=== PATIENT | female | born 1945 | race Caucasian/White ===

== ENCOUNTER 2017-07-21 12:18 | Day surgery (SDC) | payer MEDICARE ==
[~2017-07-21] VITALS: Ht 167.6 cm; Wt 81.5 kg
[~2017-07-21 12:18] MED LIST: ALLO300; BUDE6HFA; COLCRYS0.6 MG; DABI150C; DAILY MULTIPLE1 EACH PO; ESTR2 PO; ESTRTP; FURO40 PO; Hydrocodone-Ap1 EA23; LEVSOD125 PO; LOSA50 PO; MOMENI; NEBI10 PO; Prevacid15 M2 PO; TAMS.4ER; XARELTO20 MG PO
[2017-07-21] MEDS ORDERED: PROG100 PO (13:24)
[2017-07-21] MEDS ORDERED: ESTR2 PO (13:25)
[2018-06-13] MEDS ORDERED: OMEPRAZOLE MAGN20 MG PO (19:28)
[2018-06-13] MEDS ORDERED: ERGO400 PO (19:30)
[2018-06-13] MEDS ORDERED: TAMS.4ER PO (19:31)
[2018-06-13] MEDS ORDERED: ACET500 PO (19:32)
[2018-06-13] MEDS ORDERED: NATURE'S TEARS15 M1 BOTHEYES (21:33)
[2018-06-13] MEDS ORDERED: VITAMIN B PO (21:36)
[2018-06-13] MEDS ORDERED: FISH OIL 1,0001 EAC1 PO (21:36)
[2018-06-13] MEDS ORDERED: VITAMIN E PO (21:37)
[2018-06-13] MEDS ORDERED: MELA3 PO (21:38)
== END 2017-07-21 16:38 | disposition home or self-care (01) ==
LOC: ORSCSDS 12:18
PROVIDERS: Podiatrist Foot & Ankle Surgery
PROC: 0QPP04Z Removal of Internal Fixation Device from Left Metatarsal, Open Approach (ICD-10-PCS; principal; 2017-07-21 14:00)
PROC: 0QSP04Z Reposition Left Metatarsal with Internal Fixation Device, Open Approach (ICD-10-PCS; principal; 2017-07-21 14:00)
DX: M20.12 Hallux valgus (acquired), left foot (principal); Z96.9 Presence of functional implant, unspecified; I10 Essential (primary) hypertension; I48.91 Unspecified atrial fibrillation; Z87.891 Personal history of nicotine dependence; N18.9 Chronic kidney disease, unspecified; E03.9 Hypothyroidism, unspecified; Z79.899 Other long term (current) drug therapy
CPT/HCPCS: 82947; C1713; C1769; J0171; J0690; J2250; J2405; J3010; J7120

== ENCOUNTER → 2017-12-25 | Outpatient (CLI) | payer MEDICARE ==
[~2017-12-25] MED LIST changes: +DAILY MULTIPLE1 EACH; -DAILY MULTIPLE1 EACH PO; +ESTR2; +FURO40; -FURO40 PO; +LEVSOD125; -LEVSOD125 PO; +LOSA50; -LOSA50 PO; +NEBI10; -NEBI10 PO; +PROG100 PO; +Prevacid15 M2; -Prevacid15 M2 PO; +XARELTO20 MG; -XARELTO20 MG PO
[2017-12-25 08:45] LABS: Protein, Urine Quantitative 9.6 mg/dL (0.0-11.9)
[2017-12-25 08:48] LABS: Microalbumin, Urine Quant. 13.2 mg/L (0.000-20.000)
== END | disposition home or self-care (01) ==
LOC: LAB SHORT 07:17 → LAB EV 07:17
PROVIDERS: Internal Medicine Nephrology
DX: N18.3 Chronic kidney disease, stage 3 (moderate) (principal); D63.1 Anemia in chronic kidney disease; N25.81 Secondary hyperparathyroidism of renal origin; E55.9 Vitamin D deficiency, unspecified; E78.00 Pure hypercholesterolemia, unspecified; D51.8 Other vitamin B12 deficiency anemias; D52.8 Other folate deficiency anemias; D50.9 Iron deficiency anemia, unspecified; R76.9 Abnormal immunological finding in serum, unspecified; R94.5 Abnormal results of liver function studies; R94.6 Abnormal results of thyroid function studies
CPT/HCPCS: 81050; 82043; 84156

== ENCOUNTER 2020-11-24 18:55 | Inpatient (IN) | payer MEDICARE ==
[~2020-11-24] VITALS: Ht 167.6 cm; Wt 79.4 kg
[~2020-11-24 18:55] MED LIST changes: +ACET500 PO; -DAILY MULTIPLE1 EACH; +DAILY MULTIPLE1 EACH PO; +ERGO400 PO; -ESTR2; +FISH OIL 1,0001 EAC1 PO; -FURO40; +FURO40 PO; -LEVSOD125; +LEVSOD125 PO; -LOSA50; +LOSA50 PO; +MELA3 PO; +NATURE'S TEARS15 M1 BOTHEYES; -NEBI10; +NEBI10 PO; +OMEPRAZOLE MAGN20 MG PO; -Prevacid15 M2; +Prevacid15 M2 PO; +TAMS.4ER PO; +VITAMIN B PO; +VITAMIN E PO; -XARELTO20 MG; +XARELTO20 MG PO
[2020-11-24 19:48] LABS: BASOPHILS ABSOLUTE AUTO 0.04 K/mm3 (0.00-0.23); BASOPHILS PERCENT AUTO 0 % (0-2); EOSINOPHILS ABSOLUTE AUTO 0.17 K/mm3 (0.00-0.68); EOSINOPHILS PERCENT AUTO 2 % (0-6); Hematocrit 39.9 % (33.0-51.0); Hemoglobin 13.5 g/dL (11.5-16.0); IMMATURE GRAN ABSOLUTE AUTO 0.05 K/mm3 (0.00-0.10); IMMATURE GRAN PERCENT AUTO 1 % (0-1); LYMPHOCYTES ABSOLUTE AUTO 1.61 K/mm3 (0.84-5.20); LYMPHOCYTES PERCENT AUTO 17 % (21-46); MONOCYTES ABSOLUTE AUTO 1.27 K/mm3 (0.16-1.47); MONOCYTES PERCENT AUTO 13 % (4-13); Mean Corpuscular HGB 27.8 pg (26.0-34.0); Mean Corpuscular HGB Conc 33.8 g/dL (31.5-36.5); Mean Corpuscular Volume 82 fL (80-100); Mean Platelet Volume 8.6 fL (9.1-12.4); NEUTROPHILS ABSOLUTE AUTO 6.59 K/mm3 (1.96-9.15); NEUTROPHILS PERCENT AUTO 68 % (41-73); Platelet Count 162 K/mm3 (150-400); RDW Coefficient Variation 15.7 % (11.7-14.2); RDW Standard Deviation 44.4 fL (35.1-46.3); Red Blood Cell Count 4.86 M/mm3 (3.80-5.20); White Blood Cell Count 9.73 K/mm3 (4.00-11.30)
[2020-11-24 20:18] LABS: C-REACTIVE PROTEIN, EXT RANGE 13.1 mg/dL (0.000-0.300)
[2020-11-24 20:20] LABS: Albumin, Blood 3.5 g/dL (3.4-5.0); Albumin/Globulin Ratio 0.8 (0.8-1.8); Bilirubin, Total 0.9 mg/dL (0.1-1.0); Bun/Creatinine Ratio 12.2 (12.0-20.0); Calcium, Blood 9.2 mg/dL (8.5-10.1); Creatinine, Blood 1.15 mg/dL (0.40-1.00); Globulin, Blood 4.4 g/dL (2.2-4.0); Potassium, Blood 3.6 mmol/L (3.5-5.5); Total Protein, Blood 7.9 g/dL (6.4-8.2)
[2020-11-24] MEDS ORDERED: POTCHL20ER PO (22:43)
[2020-11-24 23:28] LABS: Source, Urine Clean Catch
[2020-11-24 23:30] LABS: Bilirubin, Urine Neg (Neg); Blood, Urine 4+ (Neg); Glucose Qualitative, Urine Neg (Neg); Ketones, Urine Neg (Neg); Leukocyte Esterase, Urine 3+ (Neg); Nitrite, Urine Neg (Neg); Protein, Urine 3+ (Neg); Urobilinogen, Urine NORM (Normal)
[2020-11-24 23:32] LABS: Appearance, Urine Cloudy (Clear); Color, Urine Yellow (P-Yellow)
[2020-11-24 23:37] LABS: Bacteria Many /hpf; Squamous Epithelial Cells Few /hpf (Few); White Blood Cells, Urine TNTC /hpf (0-5)
[2020-11-25] MEDS ORDERED: COLCRYS0.6 M1 PO (07:40)
--- NOTE | 2020-11-25 07:45 | NUR ---
SHIFT SUMMARY PT CAME IN FROM ED AT 0300 THIS MORNING. ALERT AND ORIENTED 3-4 WITH DAUGHTER JODY AT BEDSIDE. PT IS ADMITTED FOR L WRIST CELLULITIS WITH REDNESS, WARM TO TOUCH AND SWOLLEN. PT CAME IN WITH VANCOMYCIN INFUSING, STARTED TO FEEL WARM AND REDNESS ON FACE APPEARED. DAGOBERTO MCCONNELL JOSEPH DR. CARMICHAEL FOR BENADRYL. ADMINSTERED BENADRYL VIA IV. 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 PT HAS IV ON R HAND, SALINE LOCKED. IV ABX ADMINISTERED. PT REPORTS NO APPETITE IN THE PAST 2 DAYS. DENIES NAUSEA AND VOMITING. TOLERATING PO. HX AFIB. PT ON TELE, AFIB AT 96 PER [employer] TECH. PT DENIES NUMBNESS AND TINGLING SENSATION BUT HAD A HARD TIME MOVING LEFT SIDE FINGERS. PT SLEPT GOOD AFTER THE INITIAL ASSESSMENT. PT REPORTS PAIN, MEDICATED WITH TYLENOL. CALL LIGHT WITHIN REACH. WILL PROVIDE REPORT TO RN NURSE.
--- NOTE | 2020-11-25 19:34 | NUR ---
SHIFT SUMMARY PT A&OX4, VSS, L WRIST CELLULITIS, RED/WARM/EDEMA IMPROVED, WIGGLES FINGERS, ABLE TO MAKE A FIST NOW, DENIES N&T IN ALL EXT'S. DENIES NEED FOR PAIN MEDICATIONS. ALLEGRA PO. AMBULATING IND IN ROOM, TO BRP. VOIDING WELL. REPORT PROVIDED TO CAT RN.
[2020-11-26 04:11] LABS: BASOPHILS ABSOLUTE AUTO 0.05 K/mm3 (0.00-0.23); BASOPHILS PERCENT AUTO 1 % (0-2); EOSINOPHILS ABSOLUTE AUTO 0.25 K/mm3 (0.00-0.68); EOSINOPHILS PERCENT AUTO 4 % (0-6); Hematocrit 35.8 % (33.0-51.0); Hemoglobin 12.1 g/dL (11.5-16.0); IMMATURE GRAN ABSOLUTE AUTO 0.04 K/mm3 (0.00-0.10); IMMATURE GRAN PERCENT AUTO 1 % (0-1); LYMPHOCYTES PERCENT AUTO 21 % (21-46); MONOCYTES ABSOLUTE AUTO 0.73 K/mm3 (0.16-1.47); MONOCYTES PERCENT AUTO 11 % (4-13); Mean Corpuscular HGB 27.9 pg (26.0-34.0); Mean Corpuscular HGB Conc 33.8 g/dL (31.5-36.5); Mean Corpuscular Volume 83 fL (80-100); Mean Platelet Volume 9.1 fL (9.1-12.4); NEUTROPHILS ABSOLUTE AUTO 4.36 K/mm3 (1.96-9.15); NEUTROPHILS PERCENT AUTO 64 % (41-73); Platelet Count 145 K/mm3 (150-400); RDW Coefficient Variation 15.4 % (11.7-14.2); RDW Standard Deviation 44.3 fL (35.1-46.3); Red Blood Cell Count 4.34 M/mm3 (3.80-5.20); White Blood Cell Count 6.83 K/mm3 (4.00-11.30)
--- NOTE | 2020-11-26 04:17 | NUR ---
SHIFT SUMMARY PT AOX4. ADMITTED FOR CELLULITS ON LEFT WRIST. L WRIST REDNESS AND SWELLING IS IMPROVING. PT REPORTS MIN PAIN. PAIN MANAGED WITH TYLENOL. ABX ADMINISTERED X3. VOIDING ADEQUATELY DENIES ANY ISSUES BUT HAS BEEN HAVING DARKER YELLOW URINE. ENC PATIENT TO DRINK MORE FLUIDS. PT TOLERATION PO INTAKE. DENIES NAUSEA AND VOMITING. INDEPENDET IN ROOM. CALL LIGHT WITHIN REACH. WILL PROVIDE REPORT TO ONCOMING NURSE.
[2020-11-26 04:26] LABS: Albumin, Blood 2.8 g/dL (3.4-5.0); Anion Gap 7 mmol/L (6-16); Blood Urea Nitrogen 22 mg/dL (8-24); Bun/Creatinine Ratio 18.2 (12.0-20.0); CO2, Blood 28 mmol/L (21-32); Calcium, Blood 8.8 mg/dL (8.5-10.1); Chloride, Blood 106 mmol/L (98-108); Creatinine, Blood 1.21 mg/dL (0.40-1.00); Glomerular Filtration Rate 46 (60-); Glucose, Blood 129 mg/dL (70-99); Potassium, Blood 3.3 mmol/L (3.5-5.5); Sodium, Blood 141 mmol/L (136-145)
[2020-11-26] MEDS ORDERED: VISBIOME 112.51 EACH PO (12:50)
[2020-11-26] MEDS ORDERED: CEPH500 PO (12:52)
--- NOTE | 2020-11-26 14:40 | NUR ---
DISCHARGE SUMMARY PT ALERT AND ORIENTED THROUGHOUT MORNING SHIFT. TOLERATIG REGULAR DIET. INDEPENDENT IN THE ROOM. VOIDING WELL. SWELLING AND REDNESS TO LEFT HAND AND WRIST GREATLY DIMINISHED. DENIES PAIN. DISCHARGE ORDERS OBTAINED. IV DC'D WNL. PT TOLERATED WELL. TELE DC'D. DISCHARGE EDUCATION GIVEN ON FOLLOW UP PRECAUTIONS, FOLLOW UP APPOINTMENTS, AND DISCHARGE MEDS. PT LEFT UNIT VIA WHEELCHAIR FOR HOME AT 1250.
== END 2020-11-26 13:06 | disposition home or self-care (01) | DRG 872 ==
LOC: ER 18:55 → SURS 11-25 01:04 → ERHOLD 11-25 01:04 → SURS 11-25 03:00
PROVIDERS: Physician Assistant; ADMIT Family Medicine
DX: A41.9 Sepsis, unspecified organism (principal); I48.20 Chronic atrial fibrillation, unspecified; L03.114 Cellulitis of left upper limb; M11.232 Other chondrocalcinosis, left wrist; K21.9 Gastro-esophageal reflux disease without esophagitis; N18.30 Chronic kidney disease, stage 3 unspecified; M17.0 Bilateral primary osteoarthritis of knee; E03.9 Hypothyroidism, unspecified; Z87.11 Personal history of peptic ulcer disease; Z90.710 Acquired absence of both cervix and uterus; Z90.89 Acquired absence of other organs; Z98.890 Other specified postprocedural states; Z88.8 Allergy status to other drugs, medicaments and biological substances; Z79.01 Long term (current) use of anticoagulants; Z79.899 Other long term (current) drug therapy
CPT/HCPCS: 36415; 73110; 73200; 80053; 80069; 81001; 83605; 84550; 85025; 85651; 86140; 87086; 96365; 96367; 96374; 99285-25; A9270; J0690; J0696; J1170; J1200; J1885; J2405; J3370; J7040

== ENCOUNTER 2020-12-07 09:51 | Emergency (ER) | payer MEDICARE ==
[~2020-12-07] VITALS: Ht 167.6 cm; Wt 77.1 kg
[~2020-12-07 09:51] MED LIST changes: +CEPH500 PO; +COLCRYS0.6 M1 PO; +POTCHL20ER PO; +VISBIOME 112.51 EACH PO
[2020-12-07] MEDS ORDERED: CEPH500 PO (10:38)
== END 2020-12-07 11:10 | disposition home or self-care (01) ==
LOC: ER 09:51
DX: L03.114 Cellulitis of left upper limb (principal); I48.91 Unspecified atrial fibrillation; Z88.8 Allergy status to other drugs, medicaments and biological substances; Z88.1 Allergy status to other antibiotic agents; Z79.01 Long term (current) use of anticoagulants; Z87.891 Personal history of nicotine dependence
CPT/HCPCS: 99282

== ENCOUNTER 2021-05-03 08:28 | Day surgery (SDC) | payer MEDICARE ==
[~2021-05-03] VITALS: Ht 167.6 cm; Wt 28.5 kg
[~2021-05-03 08:28] MED LIST changes: -MELA3 PO; +MELATONIN5 M1 PO
[2021-05-03] MEDS ORDERED: FUROSEMIDE40 MG PO ×2 (09:32)
--- NOTE | 2021-05-03 11:58 | NUR ---
05/03/21 1158 Donnell Blanoc AT BEDSIDE ORDERING FOR CARDIOLOGY TO BE CALLED AND HAVE CONSULT OR APPOINTMENT TO BE MADE VIRGIL OR WITHIN A WEEK DUE TO TACHYCARDIA. PATIENT PUT ONTO 3 LEAD SHOWING SINUS TACHYCARDIA RANGING FROM 135-159 BPM WITH ANESTHESIA INFORMED AND OBSERVING VS AND LEAD RYTHM. PAR STAFF INFORMED TO KEEP PATIENT IN PAR FOR OBERSERVATION UNTIL HEART RATE STAYS CONSISTENTLY UNDER 100BPM.
--- NOTE | 2021-05-03 12:18 | NUR ---
05/03/21 1218 Donnell Blanco 10MG GIVEN BY MOUTH PER FOR TACHYCARDIA. SAMPLE OF MEDICATION RECEIVED BY [facility]. THIS IS PATIENTS HOME REGIMEN DOSE PER PT.
[2021-05-03] MEDS ORDERED: Bystolic10 MG PO ×2 (14:17)
[2021-05-03] MEDS ORDERED: SYNTHROID125 MC1 PO ×2 (14:19)
[2021-05-03] MEDS ORDERED: OMEP20ER PO ×2 (14:20)
== END 2021-05-03 13:50 | disposition home or self-care (01) ==
LOC: ORSCSDS 08:28
PROVIDERS: Orthopaedic Surgery
PROC: 0LX80ZZ Transfer Left Hand Tendon, Open Approach (ICD-10-PCS; principal; 2021-05-03 10:00)
PROC: 0RQT0ZZ Repair Left Carpometacarpal Joint, Open Approach (ICD-10-PCS; principal; 2021-05-03 10:00)
DX: M18.12 Unilateral primary osteoarthritis of first carpometacarpal joint, left hand (principal); I10 Essential (primary) hypertension; N18.30 Chronic kidney disease, stage 3 unspecified; I48.91 Unspecified atrial fibrillation; K21.9 Gastro-esophageal reflux disease without esophagitis; Z79.01 Long term (current) use of anticoagulants; Z87.891 Personal history of nicotine dependence; E03.9 Hypothyroidism, unspecified; Z79.899 Other long term (current) drug therapy
CPT/HCPCS: 71045; 82947; J0690; J1100; J2250; J2370; J2405; J2704; J3010; J7120

== ENCOUNTER 2021-05-03 13:30 | Observation (INO) | payer MEDICARE ==
[~2021-05-03] VITALS: Ht 167.6 cm; Wt 83.4 kg
[~2021-05-03 13:30] MED LIST changes: +FUROSEMIDE40 MG PO
[2021-05-03] MEDS ORDERED: Bystolic10 MG PO ×2 (14:17)
[2021-05-03] MEDS ORDERED: SYNTHROID125 MC1 PO ×2 (14:19)
[2021-05-03] MEDS ORDERED: OMEP20ER PO ×2 (14:20)
[2021-05-03 15:20] LABS: BASOPHILS ABSOLUTE AUTO 0.05 K/mm3 (0.00-0.23); BASOPHILS PERCENT AUTO 1 % (0-2); EOSINOPHILS ABSOLUTE AUTO 0.08 K/mm3 (0.00-0.68); EOSINOPHILS PERCENT AUTO 1 % (0-6); Hemoglobin 13.1 g/dL (11.5-16.0); IMMATURE GRAN ABSOLUTE AUTO 0.07 K/mm3 (0.00-0.10); IMMATURE GRAN PERCENT AUTO 1 % (0-1); LYMPHOCYTES ABSOLUTE AUTO 1.28 K/mm3 (0.84-5.20); LYMPHOCYTES PERCENT AUTO 15 % (21-46); MONOCYTES ABSOLUTE AUTO 0.31 K/mm3 (0.16-1.47); MONOCYTES PERCENT AUTO 4 % (4-13); Mean Corpuscular HGB Conc 33.6 g/dL (31.5-36.5); Mean Corpuscular Volume 86 fL (80-100); Mean Platelet Volume 9.2 fL (9.1-12.4); NEUTROPHILS ABSOLUTE AUTO 6.67 K/mm3 (1.96-9.15); NEUTROPHILS PERCENT AUTO 79 % (41-73); Platelet Count 160 K/mm3 (150-400); RDW Coefficient Variation 13.5 % (11.7-14.2); RDW Standard Deviation 42.6 fL (35.1-46.3); Red Blood Cell Count 4.52 M/mm3 (3.80-5.20); White Blood Cell Count 8.46 K/mm3 (4.00-11.30)
[2021-05-03 15:54] LABS: Alanine Aminotransfer (ALT/SGP 41 U/L (12-78); Albumin, Blood 3.3 g/dL (3.4-5.0); Albumin/Globulin Ratio 0.9 (0.8-1.8); Alk Phos 78 U/L (50-136); Anion Gap 8 mmol/L (6-16); Aspartate Aminotrans (AST/SGOT 32 U/L (12-37); Bilirubin, Total 0.3 mg/dL (0.1-1.0); Blood Urea Nitrogen 20 mg/dL (8-24); Bun/Creatinine Ratio 19.2 (12.0-20.0); CO2, Blood 28 mmol/L (21-32); Calcium, Blood 8.6 mg/dL (8.5-10.1); Chloride, Blood 104 mmol/L (98-108); Creatinine, Blood 1.04 mg/dL (0.40-1.00); Globulin, Blood 3.8 g/dL (2.2-4.0); Glomerular Filtration Rate 51 (60-); Glucose, Blood 161 mg/dL (70-99); Magnesium, Blood 1.7 mg/dL (1.6-2.4); Potassium, Blood 3.4 mmol/L (3.5-5.5); Sodium, Blood 140 mmol/L (136-145); Total Protein, Blood 7.1 g/dL (6.4-8.2)
--- NOTE | 2021-05-03 15:56 | NUR ---
CARE ASSUMPTION/ARRIVAL TO PCU PATIENT ARRIVED FROM SURGERY CENTER VIA GURNEY AND TRANSFERED TO PCU BED VIA SLIDER SHEET. ARRIVED ON 10L NRB, AND WE SWITCHED TO 2L NC AND PATIENT O2 SATS >90%. TELE AFIB MAX 130. VSS. SWITCHED TO RA AND SPO2 >90%. LUNG SOUNDS CLEAR. NO CHEST PAIN OR SOB. THUMB PAIN RATED AT 3. ICE PROVIDED AND ELEVATED. CALL LIGHT WITHIN REACH AND BED IN LOWEST POSITION. WILL CONTINUE TO MONITOR AND PROVIDE CARE.
[2021-05-03 16:14] LABS: Troponin I <0.015 ng/mL (0.000-0.040)
--- NOTE | 2021-05-03 17:52 | NUR ---
SHIFT SUMMARY PATIENT A.OX4. VSS. AFIB 80-100. SPO2 >90% ON 2L NC. PATIENT STARTED TO DESAT WHEN SLEEPING SO PUT O2 BACK ON. CARDIZEM INFUSING AT A RATE OF 5. NO ACUTE CHANGES. WILL CONTINUE TO MONITOR AND PROVIDE CARE UNTIL HAND OFF WITH NEXT SHIFT.
[2021-05-04 03:38] LABS: BASOPHILS ABSOLUTE AUTO 0.03 K/mm3 (0.00-0.23); BASOPHILS PERCENT AUTO 0 % (0-2); EOSINOPHILS PERCENT AUTO 0 % (0-6); Hematocrit 34.8 % (33.0-51.0); Hemoglobin 11.8 g/dL (11.5-16.0); IMMATURE GRAN ABSOLUTE AUTO 0.17 K/mm3 (0.00-0.10); IMMATURE GRAN PERCENT AUTO 1 % (0-1); LYMPHOCYTES ABSOLUTE AUTO 1.26 K/mm3 (0.84-5.20); LYMPHOCYTES PERCENT AUTO 9 % (21-46); MONOCYTES ABSOLUTE AUTO 1.02 K/mm3 (0.16-1.47); MONOCYTES PERCENT AUTO 8 % (4-13); Mean Corpuscular HGB 29.1 pg (26.0-34.0); Mean Corpuscular HGB Conc 33.9 g/dL (31.5-36.5); Mean Corpuscular Volume 86 fL (80-100); Mean Platelet Volume 9.4 fL (9.1-12.4); NEUTROPHILS ABSOLUTE AUTO 11.01 K/mm3 (1.96-9.15); NEUTROPHILS PERCENT AUTO 82 % (41-73); Platelet Count 152 K/mm3 (150-400); RDW Coefficient Variation 13.8 % (11.7-14.2); RDW Standard Deviation 42.7 fL (35.1-46.3); Red Blood Cell Count 4.05 M/mm3 (3.80-5.20); White Blood Cell Count 13.49 K/mm3 (4.00-11.30)
[2021-05-04 03:59] LABS: Alanine Aminotransfer (ALT/SGP 35 U/L (12-78); Albumin, Blood 2.9 g/dL (3.4-5.0); Albumin/Globulin Ratio 0.8 (0.8-1.8); Alk Phos 65 U/L (50-136); Anion Gap 8 mmol/L (6-16); Aspartate Aminotrans (AST/SGOT 24 U/L (12-37); Bilirubin, Total 0.4 mg/dL (0.1-1.0); Blood Urea Nitrogen 29 mg/dL (8-24); Bun/Creatinine Ratio 24.6 (12.0-20.0); CO2, Blood 28 mmol/L (21-32); Calcium, Blood 8.5 mg/dL (8.5-10.1); Chloride, Blood 103 mmol/L (98-108); Creatinine, Blood 1.18 mg/dL (0.40-1.00); Globulin, Blood 3.6 g/dL (2.2-4.0); Glomerular Filtration Rate 44 (60-); Glucose, Blood 184 mg/dL (70-99); Potassium, Blood 3.6 mmol/L (3.5-5.5); Sodium, Blood 139 mmol/L (136-145); Total Protein, Blood 6.5 g/dL (6.4-8.2); Troponin I <0.015 ng/mL (0.000-0.040)
--- NOTE | 2021-05-04 08:25 | NUR ---
SHIFT SUMMARY PT A/OX4, APPROPRIATE WITH STAFF. ON TELE AFIB 90'S-100'S. ON 1-2L NC TO MAINTAIN O2 ABOVE 90% WHEN SLEEPING DOES DESAT. HAS HER LEFT ARM ON A SLING, WITH ROB WRAP WITH NO DRAINAGE NOTED. ELEVATED LEFT ARM ON PILLOWS AND PUT ICE BAG AROUND ARM. BUE AND BLE SKIN WARM T/O TO TOUCH. ABLE TO MOVE FINGERS ON BOTH HANDS. PT DID HAVE A LOW GRADE FEVER AND SOMCE DISCOMFORT AND MEDICATED PER EMAR/ORDERS. VSS. PT WAS HAVING SOME ACID RELUX; HOSPITALIST NOTIFIED AND ORDERS WERE GIVEN; PT MORE COMFORTABLE. PT CONT. TO BEDSIDE COMMODE WITH ONE PERSON ASSIST. BED IN LOWEST POSITION, CALL LIGHT W/I REACH, AND BED ALARM ON. GAVE REPORT TO KRISTAL GUTIERREZ RN.
--- NOTE | 2021-05-04 09:15 | NUR ---
CARE ASSUMPTION PATIENT A/OX4. VSS. SPO2 >90% ON RA. TELE AFIB 70-90S. NO CHEST PAIN, PAIN, OR SOB. MD IN TO SEE PATIENT AND PATIENT WILL DISCHARGE TODAY. CALL LIGHT WITHIN REACH. WILL CONTINUE TO MONITOR AND PROVIDE CARE.
--- NOTE | 2021-05-04 10:46 | NUR ---
PT DISCHARGED TO HOME WITH DISCHARGE ORDERS PT DISCLOSED POST OP INSTRUCTIONS FROM YESTERDAY'S DC PAPPER FROM DAY SURGERY. PT VERBALIZED UNDERSTANDING. PT TO CONTINUE SAME HOME MEDS REGIMEN. PT SENT HOME WITH PAIN MEDS HARD SCRIPT. DRESSING ON LEFT ARM INTACT WITH SLING ON. NO OTHER ISSUES REPORTED PRIOR TO DISCHARGE. PT ACCOMPANIED BY NATIONAL GUARD AT THE ER ENTRANCE FOR TRANSPORT, ALL BELONGINGS SENT WITH THE PT.
== END 2021-05-04 10:48 | disposition home or self-care (01) ==
LOC: PCU 13:30
PROVIDERS: ADMIT Nurse Practitioner Acute Care
DX: I97.191 Other postprocedural cardiac functional disturbances following other surgery (principal); I48.20 Chronic atrial fibrillation, unspecified; I12.9 Hypertensive chronic kidney disease with stage 1 through stage 4 chronic kidney disease, or unspecified chronic kidney disease; N18.30 Chronic kidney disease, stage 3 unspecified; E66.01 Morbid (severe) obesity due to excess calories; K21.9 Gastro-esophageal reflux disease without esophagitis; E78.1 Pure hyperglyceridemia; E89.0 Postprocedural hypothyroidism; Z88.8 Allergy status to other drugs, medicaments and biological substances; Z88.1 Allergy status to other antibiotic agents; Z79.01 Long term (current) use of anticoagulants; Z68.29 Body mass index [BMI] 29.0-29.9, adult; Y83.8 Other surgical procedures as the cause of abnormal reaction of the patient, or of later complication, without mention of misadventure at the time of the procedure
CPT/HCPCS: 36415; 80053; 83735; 83880; 84484; 85025; 93005; 93010; 96374; 96375; A9270; G0378; J1940

== ENCOUNTER 2021-05-20 10:03 | Day surgery (SDC) | payer MEDICARE ==
[~2021-05-20] VITALS: Ht 167.6 cm; Wt 79.4 kg
[~2021-05-20 10:03] MED LIST changes: +Bystolic10 MG PO; +OMEP20ER PO; +SYNTHROID125 MC1 PO
--- NOTE | 2021-05-20 14:45 | NUR ---
05/20/21 1445 Susan Jin (Marielena DELAYED ENTRY ONCE IN RECOVERY, PT DESATURATED TO 88% ON ROOM AIR. WHEN INSTRUCTED TO DEEP BREATHE, 02 INCREASED TO 90-94%. UNLESS PT WAS CONSCIOUSLY DEEP BREATHING, OXYGEN WOULD DROP TO 88%. PT CONTINUES TO DENY ANY DISCOMFORT, DIFFICULTY BREATHING OR NEED TO CLEAR LUNGS. LUNGS CLEAR TO AUSCULTATION, PT DOES NOT APPEAR IN DISTRESS, NO LABORED BREATHING. DR. MANZO NOTIFIED OF DECREASED O2 SAT. 1255: DR. MANZO CALLED PT'S PCP 1300: DR. MANZO CALLED ED REGARDING POSSIBLE TX FOR CHEST XRAY PT ADAMANTLY DOES NOT WANT TO REPORT TO ED; STS SHE "LIVES LIKE THIS" AND "FEELS FINE". DR. MANZO CLEARED PT FOR PO INTAKE. PT TOLERATING JUICE WITHOUT ISSUES. PT O2 GRADUALLY INCREASING WITHOUT FOCUSED DEEP BREATHING, SATURATION NOW RANGING 93-96% ON ROOM AIR. PT & DR. MANZO IN AGREEMENT PT IS OKAY TO DISCHARGE HOME. 1325: DR. MANZO CLEARED PT TO DISCHARGE HOME ON ROOM AIR.
== END 2021-05-20 13:45 | disposition home or self-care (01) ==
LOC: ORSCSDS 10:03
DX: D50.0 Iron deficiency anemia secondary to blood loss (chronic) (principal); R19.5 Other fecal abnormalities; Z86.010 Personal history of colon polyps; K31.7 Polyp of stomach and duodenum; K44.9 Diaphragmatic hernia without obstruction or gangrene; K57.30 Diverticulosis of large intestine without perforation or abscess without bleeding; K64.8 Other hemorrhoids; I48.91 Unspecified atrial fibrillation; Z79.01 Long term (current) use of anticoagulants; Z87.891 Personal history of nicotine dependence; E03.9 Hypothyroidism, unspecified; K76.0 Fatty (change of) liver, not elsewhere classified; Z79.899 Other long term (current) drug therapy
CPT/HCPCS: 82947; 88305; 88341; 88342; J2405; J2704; J7120

== ENCOUNTER → 2022-06-16 | Outpatient (CLI) | payer MEDICARE | LOC: LAB 08:05 → LAB SHORT 08:05 | DX: L72.0 Epidermal cyst (principal); L57.8 Other skin changes due to chronic exposure to nonionizing radiation | CPT/HCPCS: 88304 ==

== ENCOUNTER 2023-02-01 11:44 | Inpatient (IN) | payer MEDICARE ==
[~2023-02-01] VITALS: Ht 167.6 cm; Wt 79.5 kg
[~2023-02-01 11:44] MED LIST changes: +ALLOPURINOL100 M1 PO; +AMOCLA875 PO; +HYDROCODONE-AC1 EA10 PO
[2023-02-01 12:21] LABS: BASOPHILS ABSOLUTE AUTO 0.04 K/mm3 (0.00-0.23); BASOPHILS PERCENT AUTO 0 % (0-2); EOSINOPHILS ABSOLUTE AUTO 0.01 K/mm3 (0.00-0.68); EOSINOPHILS PERCENT AUTO 0 % (0-6); Hematocrit 36.7 % (33.0-51.0); Hemoglobin 12.4 g/dL (11.5-16.0); IMMATURE GRAN PERCENT AUTO 1 % (0-1); LYMPHOCYTES PERCENT AUTO 3 % (21-46); MONOCYTES ABSOLUTE AUTO 0.87 K/mm3 (0.16-1.47); MONOCYTES PERCENT AUTO 7 % (4-13); Mean Corpuscular HGB 28.2 pg (26.0-34.0); Mean Corpuscular HGB Conc 33.8 g/dL (31.5-36.5); Mean Corpuscular Volume 83 fL (80-100); Mean Platelet Volume 9.8 fL (9.1-12.4); NEUTROPHILS ABSOLUTE AUTO 11.91 K/mm3 (1.96-9.15); NEUTROPHILS PERCENT AUTO 89 % (41-73); Platelet Count 133 K/mm3 (150-400); RDW Coefficient Variation 14.8 % (11.7-14.2); RDW Standard Deviation 44.8 fL (35.1-46.3); White Blood Cell Count 13.33 K/mm3 (4.00-11.30)
[2023-02-01 12:28] LABS: Source, Urine Straight Cath
[2023-02-01 12:34] LABS: Magnesium, Blood 1.4 mg/dL (1.6-2.4)
[2023-02-01 12:35] LABS: Albumin, Blood 3.4 g/dL (3.4-5.0); Albumin/Globulin Ratio 0.9 (0.8-1.8); Bilirubin, Total 4.1 mg/dL (0.1-1.0); Bun/Creatinine Ratio 20.3 (12.0-20.0); Calcium, Blood 9.1 mg/dL (8.5-10.1); Creatinine, Blood 0.98 mg/dL (0.40-1.00); Globulin, Blood 3.8 g/dL (2.2-4.0); Potassium, Blood 3.1 mmol/L (3.5-5.5); Total Protein, Blood 7.2 g/dL (6.4-8.2)
[2023-02-01 12:35] LABS: Appearance, Urine Clear (Clear); Bilirubin, Urine Neg (Neg); Blood, Urine 3+ (Neg); Color, Urine Yellow (P-Yellow); Glucose Qualitative, Urine Neg (Neg); Ketones, Urine Neg (Neg); Leukocyte Esterase, Urine Neg (Neg); Nitrite, Urine Neg (Neg); Protein, Urine 3+ (Neg); Specific Gravity, Urine 1.015 (1.003-1.022); Urobilinogen, Urine NORM (Normal)
[2023-02-01 12:53] LABS: Red Blood Cells, Urine 0-2 /hpf (0-2); White Blood Cells, Urine 0-2 /hpf (0-5)
[2023-02-01 12:54] LABS: Amorphous Light (0-Heavy); Bacteria Few /hpf; Mucus Mod (0-Heavy); Squamous Epithelial Cells Few /hpf (Few)
[2023-02-01 20:50] LABS: International Normalized Ratio 1.19; Prothrombin Time Results 12.4 Sec (9.7-11.5)
[2023-02-01 21:09] VITALS: BP 126/73
[2023-02-01 23:43] VITALS: BP 129/74
[2023-02-02] VITALS (7 sets, daily range): BP systolic 110–151; BP diastolic 76–88
[2023-02-02] MEDS ORDERED: NEBI10 PO (03:25)
[2023-02-02] MEDS ORDERED: MELATONIN5 M1 PO (03:26)
[2023-02-02 05:29] LABS: BASOPHILS ABSOLUTE AUTO 0.03 K/mm3 (0.00-0.23); BASOPHILS PERCENT AUTO 0 % (0-2); EOSINOPHILS ABSOLUTE AUTO 0.15 K/mm3 (0.00-0.68); EOSINOPHILS PERCENT AUTO 1 % (0-6); Hemoglobin 11.7 g/dL (11.5-16.0); IMMATURE GRAN ABSOLUTE AUTO 0.09 K/mm3 (0.00-0.10); IMMATURE GRAN PERCENT AUTO 1 % (0-1); LYMPHOCYTES ABSOLUTE AUTO 0.85 K/mm3 (0.84-5.20); LYMPHOCYTES PERCENT AUTO 8 % (21-46); MONOCYTES ABSOLUTE AUTO 1.08 K/mm3 (0.16-1.47); MONOCYTES PERCENT AUTO 10 % (4-13); Mean Corpuscular HGB Conc 32.5 g/dL (31.5-36.5); Mean Corpuscular Volume 86 fL (80-100); Mean Platelet Volume 10.8 fL (9.1-12.4); NEUTROPHILS ABSOLUTE AUTO 9.15 K/mm3 (1.96-9.15); NEUTROPHILS PERCENT AUTO 81 % (41-73); Platelet Count 106 K/mm3 (150-400); RDW Coefficient Variation 15.6 % (11.7-14.2); RDW Standard Deviation 48.7 fL (35.1-46.3); Red Blood Cell Count 4.18 M/mm3 (3.80-5.20); White Blood Cell Count 11.35 K/mm3 (4.00-11.30)
[2023-02-02 05:40] LABS: International Normalized Ratio 1.3; Prothrombin Time Results 13.4 Sec (9.7-11.5)
[2023-02-02 06:09] LABS: Magnesium, Blood 2.2 mg/dL (1.6-2.4)
[2023-02-02 06:10] LABS: Albumin, Blood 3.2 g/dL (3.4-5.0); Albumin/Globulin Ratio 0.9 (0.8-1.8); Bilirubin, Total 6.5 mg/dL (0.1-1.0); Bun/Creatinine Ratio 18.2 (12.0-20.0); Calcium, Blood 8.7 mg/dL (8.5-10.1); Creatinine, Blood 1.21 mg/dL (0.40-1.00); Globulin, Blood 3.7 g/dL (2.2-4.0); Potassium, Blood 3.9 mmol/L (3.5-5.5); Total Protein, Blood 6.9 g/dL (6.4-8.2)
--- NOTE | 2023-02-02 06:50 | NUR ---
SHIFT SUMMARY PATIENT ARRIVED TO PCU 12 VIA STRETCHER, SLIDE TRANSFER COMPLETED. PATIENT IS ALERT AND ORIENTED X 2-3, CONFUSED ON DATE AND CURRENT SITUATION, FORGETFUL AT TIMES. PATIENT IS PLEASANT AND COOPORATIVE WITH CARE. PATIENT'S ABDOMEN IS FIRM AND DISTENDED BUT PATIENT DENIES ANY PAIN OR TENDERNESS, BOWEL TONES ACTIVE. PATIENT MEDICATED PER EMAR FOR NAUSEA. PATIENT HAD SEVERAL SMALL, LOOSE BOWEL MOVEMENTS, SOME BRIGHT RED DROPS NOTED ON TOP. PATIENT DENIES CHEST PAIN OR SHORTNESS OF BREATH. ON ROOM AIR, VITAL SIGNS STABLE. PATIENT EDUCATED ON FIRE SAFETY AND IGNITION SOURCES IN THE HOSPITAL. WILL CONTINUE TO MONITOR. CALL LIGHT WITHIN REACH.
--- NOTE | 2023-02-02 07:40 | NUR ---
Bedside report received from JAYESH Jaime at approx 0700. Pt is awake, alert, and confused. Able to state her name and birthday, and where she is. Unable to articulate neither the present date, season, nor reason for admission; however, she clearly states that her lap heladio was November 25 of this year. She is cooperative and appears not to be anxious. States she has some nausea. NO vomiting. Assisted up to recliner chair with chair alarm in place. States she feels more comfortable in that position. NOted she was given zofran earlier this morning, around 4 am. Lactated Ringer infusion at 125 cc/hour noted ongoing. She has no c/o pain or other discomfort.
--- NOTE | 2023-02-02 08:01 | NUR ---
Pt mentioned that she was concerned about her alone. Phone call made to him to update him. Daughter Gemma just arrived.
--- NOTE | 2023-02-02 12:10 | NUR ---
PT stated she was extremely tired, and wanted to get back into bed. Slightly disoriented, but assisted easily back to bed.
--- NOTE | 2023-02-02 14:15 | NUR ---
Pt's heart rate has been trending up. She also has increased temperature, 100.1 orally. Blood pressure is stable, but lower than earlier. She is very tired, wants to nap, but moaning and grimacing while lying in bed. Has difficulty articulating where her pain is, but did state abdominal pain, headache. Given 25 fentanyl for abdominal pain as well as 650 mg Tylenol. Resting quietly in darkened room with daughter at bedside. IVF continue to infuse as before at 125 cc/hour. Atrial fibrillation by telemetry, 125-130 bpm at rest.
--- NOTE | 2023-02-02 15:19 | NUR ---
Call to Dr Steward to update her on pt condition. New orders received, others anticipated shortly.
--- NOTE | 2023-02-02 16:02 | NUR ---
Pt awakened, cheerful, and states that her headache is gone and her abdominal pain is only "slight". She is talkative with her two visitors at the bedside. Asked for some 7-UP. Heart rate is 101-113 bpm, atrial fibrillation, at this time.
[2023-02-02 22:19] LABS: Adenovirus F 40/41 Not Detected (NOT DETECT); Astrovirus Not Detected (NOT DETECT); Campylobacter Sp Not Detected (NOT DETECT); Cryptosporidium Not Detected (NOT DETECT); Cyclospora Cayetanensis Not Detected (NOT DETECT); E. Coli O157 Not Detected (NOT DETECT); Entamoeba Histolytica Not Detected (NOT DETECT); Enteroaggregative E. coli-EAEC Not Detected (NOT DETECT); Enteropathogenic E. coli-EPEC Not Detected (NOT DETECT); Enterotoxigenic E. coli-ETEC Not Detected (NOT DETECT); Giardia Lamblia Not Detected (NOT DETECT); Norovirus GI/GII Not Detected (NOT DETECT); Plesiomonas Shigelloides Not Detected (NOT DETECT); Rotavirus A Not Detected (NOT DETECT); Salmonella Sp Not Detected (NOT DETECT); Sapovirus Not Detected (NOT DETECT); Shiga Toxin-prod E. coli-STEC Not Detected (NOT DETECT); Shigella/Enteroin E. coli-EIEC Not Detected (NOT DETECT); Vibrio Cholerae Not Detected (NOT DETECT); Vibrio Sp Not Detected (NOT DETECT); Yersinia Enterocolitica Not Detected (NOT DETECT)
[2023-02-03 00:02] VITALS: BP 149/87
[2023-02-03 03:31] LABS: BASOPHILS ABSOLUTE AUTO 0.03 K/mm3 (0.00-0.23); BASOPHILS PERCENT AUTO 0 % (0-2); EOSINOPHILS ABSOLUTE AUTO 0.16 K/mm3 (0.00-0.68); EOSINOPHILS PERCENT AUTO 2 % (0-6); Hemoglobin 10.8 g/dL (11.5-16.0); IMMATURE GRAN ABSOLUTE AUTO 0.07 K/mm3 (0.00-0.10); IMMATURE GRAN PERCENT AUTO 1 % (0-1); LYMPHOCYTES ABSOLUTE AUTO 1.12 K/mm3 (0.84-5.20); LYMPHOCYTES PERCENT AUTO 13 % (21-46); MONOCYTES ABSOLUTE AUTO 0.91 K/mm3 (0.16-1.47); MONOCYTES PERCENT AUTO 10 % (4-13); Mean Corpuscular HGB Conc 32.7 g/dL (31.5-36.5); Mean Corpuscular Volume 86 fL (80-100); Mean Platelet Volume 10.5 fL (9.1-12.4); NEUTROPHILS ABSOLUTE AUTO 6.59 K/mm3 (1.96-9.15); NEUTROPHILS PERCENT AUTO 74 % (41-73); Platelet Count 102 K/mm3 (150-400); RDW Standard Deviation 49.4 fL (35.1-46.3); Red Blood Cell Count 3.86 M/mm3 (3.80-5.20); White Blood Cell Count 8.88 K/mm3 (4.00-11.30)
[2023-02-03 03:55] LABS: Albumin, Blood 2.9 g/dL (3.4-5.0); Albumin/Globulin Ratio 0.8 (0.8-1.8); Bilirubin, Total 6.3 mg/dL (0.1-1.0); Bun/Creatinine Ratio 20.9 (12.0-20.0); Calcium, Blood 8.4 mg/dL (8.5-10.1); Creatinine, Blood 0.96 mg/dL (0.40-1.00); Globulin, Blood 3.7 g/dL (2.2-4.0); Potassium, Blood 3.7 mmol/L (3.5-5.5); Total Protein, Blood 6.6 g/dL (6.4-8.2)
[2023-02-03 05:07] VITALS: BP 149/105
--- NOTE | 2023-02-03 06:37 | NUR ---
SHIFT SUMMARY PATIENT ALERT AND OREINTED X 2-3. PATIENT REMAINS SLIGHTLY CONFUSED AND FORGETFUL, HAVING TO BE REORIENTED TO TASKS AT HAND AND EQUIPMENT IN THE ROOM. PATIENT MEDICATED PER EMAR FOR NAUSEA. PATIENT WAS AWAKE MUCH OF THE NIGHT STATING THAT SHE FELT SICK TO HER STOMACH, PATIENT DENIED HAVING ANY PAIN. PATIENT ON ROOM AIR. VITAL SIGNS STABLE. PATIENT EDUCATED ON FIRE SAFETY AND IGNITION RISK IN THE HOSPITAL. WILL CONTINUE TO MONITOR. CALL LIGHT WITHIN REACH.
--- NOTE | 2023-02-03 07:17 | NUR ---
Pt states she did not sleep very well at all last night. She appears tired, lying in bed on her left side. States no appetite, ongoing nausea. States very bad sore throat and dry mouth. Given a popscicle which she is eating now for relief.
[2023-02-03 07:29] VITALS: BP 156/91
[2023-02-03 08:13] LABS: COMPLEMENT C3, SERUM 118 mg/dL (82-167)
--- NOTE | 2023-02-03 08:28 | NUR ---
States that the popscicle really helped her sore throat. Drank 100cc apple juice, states that she is feeling okay. Daughter Gemma at the bedside.
--- NOTE | 2023-02-03 09:48 | NUR ---
ASSUMED CARE: ASSUMED CARE OF PT APPROX 0715. PT A&O X3-4, SITTING UP IN BED. HR 110'S, SBP 150'S. PT DENIES CP/PRESSURE. SPO2 95% ON RA, PT REPORTS FEELING SOB. HOB ELEVATED, PT REPORTS RELIEF. PT DENIES NAUSEA AT THIS TIME. DAUGHTER JODY AT BEDSIDE THIS AM. CALL LIGHT WITHIN REACH. NO FURTHER NEEDS AT THIS TIME.
[2023-02-03 11:13] LABS: HBSAG SCREEN Negative (Negative); HCV AB Non Reactive (Non Reactive); HEP A AB, IGM Negative (Negative); HEP B CORE AB, IGM Negative (Negative)
[2023-02-03 11:48] VITALS: BP 121/79
--- NOTE | 2023-02-03 12:09 | NUR ---
SAFETY NOTE: PT EDUCATED ON FIRE SAFETY AND IGNITION SOURCES AT THE HOSPITAL. PT VOICED UNDERSTANDING OF EDUCATION.
--- NOTE | 2023-02-03 15:25 | NUR ---
Call to Dr. Steward regarding pt's c/o wheezing and increased work of breathing. NO distress, but noted transient wheezing and crackles. No peripheral edema noted on the legs; however, pt states that her rings on her fingers are tight. IVF were paused and called the doctor. Pt was also given an incentive spirometer, and demonstrated the use of it. New order to dc the continueous fluids. Pt is eating and drinking.
[2023-02-03 15:52] VITALS: BP 148/74
--- NOTE | 2023-02-03 18:10 | NUR ---
SHIFT SUMMARY: PT MOSTLY A&OX4 THROUGHOUT SHIFT. ABLE TO CALL APPROPRIATELY AND MAKE NEEDS KNOWN TO STAFF. HR 90'S-110'S, BP STABLE. PT DENIES CP/PRESSURE. SPO2 MOSTLY 92-95%. SEE PREVIOUS NOTE REGARDING RESPIRATORY CHANGES THIS SHIFT. ZOSYN INFUSING IN LAC IV PER EMAR. ABLE TO AMBULATE WITH STAFF ASSISTANCE TO RESTROOM. PT ABLE TO EAT APPLESAUCE AND BAKED POTATO THIS SHIFT. REPORTS SLIGHT INCREASE IN APPETITE, DENIES NAUSEA. PT REPORTS HEADACHE THIS PM, MEDICATED WITH TYLENOL PER EMAR. PT RESTING IN BED. CALL LIGHT WITHIN REACH, NO FURTHER NEEDS AT THIS TIME. WILL REPORT TO ONCOMING RN.
[2023-02-03 20:00] VITALS: BP 127/95
[2023-02-03 20:09] LABS: ANTI-DSDNA ANTIBODIES <1 IU/mL (0-9); RNP ANTIBODIES 0.2 AI (0.0-0.9); SJOGREN'S ANTI-SS-A <0.2 AI (0.0-0.9); SJOGREN'S ANTI-SS-B <0.2 AI (0.0-0.9); SMITH ANTIBODIES <0.2 AI (0.0-0.9)
[2023-02-04 00:30] VITALS: BP 115/78
[2023-02-04 04:51] VITALS: BP 119/87
[2023-02-04 04:57] LABS: Albumin, Blood 2.5 g/dL (3.4-5.0); Albumin/Globulin Ratio 0.7 (0.8-1.8); Bilirubin, Total 7.2 mg/dL (0.1-1.0); Bun/Creatinine Ratio 13.6 (12.0-20.0); Calcium, Blood 8.1 mg/dL (8.5-10.1); Creatinine, Blood 1.03 mg/dL (0.40-1.00); Globulin, Blood 3.4 g/dL (2.2-4.0); Potassium, Blood 3.1 mmol/L (3.5-5.5); Thyroid Stimulating Hormone 3.21 uIU/mL (0.360-4.800); Total Protein, Blood 5.9 g/dL (6.4-8.2)
--- NOTE | 2023-02-04 06:26 | NUR ---
SHIFT SUMMARY PT A&O X3-4. PT ANSWERING QUESTIONS APPROPRIATELY AND PLEASANT. VSS THROUGHOUT SHIFT. PT REMAINS ON RA, SPO2 93-95%. DENIES SOB. DENIES CP OR PRESSURE. PT DENIES GENERAL PAIN. PT DENIES N/V/D. REPORTS BM YESTERDAY DURING DAYSHIFT WAS "A LITTLE LOOSE" BUT DENIES ANY CONCERNS. PT DENIES ABDOMINAL PAIN. PT REPORTS "SHE IS FEELING MUCH BETTER". PT SLEPT WELL THROUGHOUT THE NIGHT. PT UP TO USE RESTROOM W/SBA. PT TOLERATED THIS WELL. NO BM THIS SHIFT. NO ACUTE CHANGES DURING SHIFT. WILL UPDATE ONCOMING RN.
[2023-02-04 08:15] VITALS: BP 112/64
--- NOTE | 2023-02-04 10:57 | NUR ---
CARE ASSUMPTION This Rn assumed care at 0700. vital signs stable. tele afib 106. spo2 >95% on room air. patient is alert and oriented x4. perrla. neuro intact. patient uses call light appropriately and is able to make needs knonw. patient reports no shortness of breath, pain, or chest pain/pressure. lung sounds bilaterally upper and lower are clear. patient ate breakfast this morning and tolerated it well. see shift assessment for further detials. plan of care is up to date. call light within reach. family at bedside.
[2023-02-04 12:08] VITALS: BP 135/78
--- NOTE | 2023-02-04 12:28 | NUR ---
SAFETY THIS RN PROVIDED EDUCATION AND ASSESSED FOR FIRE IGNITION AND SOURCES. PATIENT VERBALIZED UNDERSTANDING, AND DENIED HAVING ANY FIRE IGNITION SOURCES OR BEING A SMOKER.
[2023-02-04 15:52] VITALS: BP 134/82
--- NOTE | 2023-02-04 17:16 | NUR ---
shift summary patient neuro remains intact and unchanged. vital signs stable. no acute changes this shift. plan of care remains up to date. patient has been pain free, chest pain/pressure free, and shortness of breath free. patient had a shower today with minimal assistance. patient has had family off and on at bedside. call light within reach
[2023-02-04 19:50] VITALS: BP 142/95
[2023-02-05] VITALS (8 sets, daily range): BP systolic 132–162; BP diastolic 80–116
[2023-02-05 04:04] LABS: BASOPHILS ABSOLUTE AUTO 0.05 K/mm3 (0.00-0.23); BASOPHILS PERCENT AUTO 1 % (0-2); EOSINOPHILS ABSOLUTE AUTO 0.24 K/mm3 (0.00-0.68); EOSINOPHILS PERCENT AUTO 4 % (0-6); Hematocrit 29.1 % (33.0-51.0); Hemoglobin 9.6 g/dL (11.5-16.0); IMMATURE GRAN ABSOLUTE AUTO 0.27 K/mm3 (0.00-0.10); IMMATURE GRAN PERCENT AUTO 5 % (0-1); LYMPHOCYTES ABSOLUTE AUTO 1.13 K/mm3 (0.84-5.20); LYMPHOCYTES PERCENT AUTO 19 % (21-46); MONOCYTES PERCENT AUTO 12 % (4-13); Mean Corpuscular HGB 27.8 pg (26.0-34.0); Mean Corpuscular Volume 84 fL (80-100); Mean Platelet Volume 10.7 fL (9.1-12.4); NEUTROPHILS ABSOLUTE AUTO 3.52 K/mm3 (1.96-9.15); NEUTROPHILS PERCENT AUTO 60 % (41-73); Platelet Count 130 K/mm3 (150-400); RDW Coefficient Variation 15.9 % (11.7-14.2); RDW Standard Deviation 48.5 fL (35.1-46.3); Red Blood Cell Count 3.45 M/mm3 (3.80-5.20); White Blood Cell Count 5.91 K/mm3 (4.00-11.30)
[2023-02-05 04:48] LABS: Albumin, Blood 2.3 g/dL (3.4-5.0); Albumin/Globulin Ratio 0.6 (0.8-1.8); Bilirubin, Total 6.3 mg/dL (0.1-1.0); Bun/Creatinine Ratio 15.1 (12.0-20.0); Calcium, Blood 8.2 mg/dL (8.5-10.1); Creatinine, Blood 0.93 mg/dL (0.40-1.00); Globulin, Blood 3.6 g/dL (2.2-4.0); Potassium, Blood 3.5 mmol/L (3.5-5.5); Total Protein, Blood 5.9 g/dL (6.4-8.2)
--- NOTE | 2023-02-05 07:29 | NUR ---
NOC SHIFT SUMMARY PT SLEPT WELL, NO COMPLAINTS OF PAIN OR DISCOMFORT. VSS PER PT TREND, ON RA. AFIB ON TELEMETRY, LOW 100S. 1PA TO BATHROOM. WILL PASS ON TO DAY RN
--- NOTE | 2023-02-05 11:30 | NUR ---
THIS NURSE GAVE REPORT TO KAYLYN MCCONNELL ON MEDICAL. KAYLYN MCCONNELL HAD NO FURTHER QUESTIONS AT THIS TIME AFTER REPORT. THIS NURSE WILL PACK UP THE PATIENTS PERSONAL ITEMS IN THE ROOM AND TRASNFER HER UP TO MEDICAL SHORTLY.
--- NOTE | 2023-02-05 12:30 | NUR ---
PT ARRIVED TO MEDICAL FLOOR AT 1140 ACCOMPANIED BY DAUGHTER AND TWO SONS. IV L AC c ZOSYN AND NS. PLEASANT AND COOPERATIVE TO CARE. A&Ox4. SWELLING NOTED IN LEs; R>L. REQUESTED TO REMOVE YELLOW COMMUNICATIONS DIRECTOR SOCKS. INITIAL BP ELEVATED; MANUAL RECHECK OF 132/82. GIVEN ICE WATER AND LUNCH.
--- NOTE | 2023-02-05 17:47 | NUR ---
PT CALLED WITH C/O SUDDEN ONSET SOB. SPO2 96%. TELE AFIB. BP 142/110. 2L/MIN VIA NC APPLIED AND HELPED CALM PATIENT AND IMPROVE BREATHING. BEDSIDE EKG OBTAINED; NO DEGREDATION COMPARED TO PREVIOUS STUDY. PT RESTING NOW AND REPORTS FEELING MUCH BETTER.
--- NOTE | 2023-02-05 19:56 | NUR ---
DRILL PRESS OPERATOR FOR METAL SUMMARY: A&Ox4. PLEASANT AND COOPERATIVE WITH CARE. TELE AFIB. AROUND 1430 BEGAN C/O SOB; HOB ELEVATED. O2 SATS 96% RA, ELEVATED DBP OF 110. UNABLE TO REACH DR UMANZOR; APPLIED 2L/MIN VIA NC AND PERFORMED EKG, MOSTLY UNCHANGED FROM YESTERDAY. NO FURTHER C/O SOB. DENIES CP, DIZZINESS OR NAUSEA. INDEPENDENT TO BATHROOM. SCDs IN PLACE. NO CONCERNS. REPORT TO ONCOMING RN.
[2023-02-06 04:19] VITALS: BP 150/96
--- NOTE | 2023-02-06 04:59 | NUR ---
SHIFT SUMMARY; NO ACUTE CHANGES OVERNIGHT. THE PT IS AXO X4 AND A STANDBY ASSIST TO THE BATHROOM. THE PT IS ON TELE, A-FIB IN THE 100'S. THE PTS BLOOD PRESSURE HAS BEEN SLIGHTLY ELEVATED BUT NOT ELEVATED ENOUGH TO RECIEVE PRN LABETALOL. THE PT DENIES ANY SOB, CHEST PAIN/PRESSURE OR PAIN AT THIS TIME. THE PT IS ON 2L NC W/ O2 SATS >92%. THE PT DOES ENDORSE FEELING BLOATED. CURRENTLY THE PT IS SLEEPING IN BED WITH THE BED IN THE LOWEST POSITION AND THE CALL LIGHT AT BEDSIDE. FIRE SAFETY MAINTAINED T/O THE SHIFT.
[2023-02-06 05:15] LABS: Hematocrit 29.6 % (33.0-51.0); Hemoglobin 9.7 g/dL (11.5-16.0); Mean Corpuscular HGB 27.7 pg (26.0-34.0); Mean Corpuscular HGB Conc 32.8 g/dL (31.5-36.5); Mean Corpuscular Volume 85 fL (80-100); Mean Platelet Volume 10.5 fL (9.1-12.4); NRBC ABSOLUTE 0.02 K/mm3 (0.00-0.02); NRBC Auto 0.3 /100 WBC (0.0-0.2); Platelet Count 150 K/mm3 (150-400); RDW Coefficient Variation 16.3 % (11.7-14.2)
[2023-02-06 05:39] LABS: Albumin, Blood 2.4 g/dL (3.4-5.0); Albumin/Globulin Ratio 0.6 (0.8-1.8); Bilirubin, Total 4.8 mg/dL (0.1-1.0); Bun/Creatinine Ratio 14.9 (12.0-20.0); Calcium, Blood 8.8 mg/dL (8.5-10.1); Creatinine, Blood 0.88 mg/dL (0.40-1.00); Globulin, Blood 3.8 g/dL (2.2-4.0); Potassium, Blood 3.7 mmol/L (3.5-5.5); Total Protein, Blood 6.2 g/dL (6.4-8.2)
[2023-02-06 07:43] VITALS: BP 172/113
[2023-02-06 09:37] VITALS: BP 168/101
[2023-02-06 11:08] VITALS: BP 152/88
[2023-02-06 16:17] VITALS: BP 161/92
--- NOTE | 2023-02-06 16:41 | NUR ---
SHIFT SUMMARY PT IN CHAIR OR LAYING DOWN TODAY. DID AMBULATE IN HALLWAY WITH FAMILY USING FWW THIS MORNING. TOOK A SPONGE BATH THIS AFTERNOON. BLOOD PRESSURES ELEVATED WITH MD AWARE AND ADJUSTING MEDICATION. FAMILY AT BEDSIDE THROUGH THE DAY. DENIES ANY PAIN TO ABDOMEN OR OTHERWISE BUT DOES REPORT FEELING BLOATED ESPECIALLY AFTER EATING.
--- NOTE | 2023-02-06 17:20 | NUR ---
THE PATIENT HAS SLEPT MOST OF THE SHIFT, WAKING UP TO USE THE BEDSIDE COMODE (TWICE), THE PATIENT RECEIVED A VISIT FROM DR. MANZO AND WAS TOLD ABOUT HER INFECTION. THE PATIENT HAS DRANK TWO COLD DRINKS AND ATE VERY LITTLE. THE PATIENT IS A&O X4, WHEN AWAKE, BUT WILL FALL ASLEEP SOON THE CONVERSATION IS STOPPED.
[2023-02-06 20:11] VITALS: BP 154/88
[2023-02-07 02:45] VITALS: BP 155/88
[2023-02-07 05:17] LABS: Albumin, Blood 2.5 g/dL (3.4-5.0); Albumin/Globulin Ratio 0.6 (0.8-1.8); Bilirubin, Total 3.4 mg/dL (0.1-1.0); Bun/Creatinine Ratio 13.6 (12.0-20.0); Calcium, Blood 8.6 mg/dL (8.5-10.1); Creatinine, Blood 0.88 mg/dL (0.40-1.00); Globulin, Blood 3.9 g/dL (2.2-4.0); Potassium, Blood 3.6 mmol/L (3.5-5.5); Total Protein, Blood 6.4 g/dL (6.4-8.2)
--- NOTE | 2023-02-07 05:29 | NUR ---
SHIFT SUMMARY A/OX4, SBA TO BATHROOM. SPO2 >92% ON RA. TELE AFIB 90S, DENIES CHEST PAIN/PRESSURE. IV ABX GIVEN PER EMAR. VSS, NO ACUTE CHANGES AT THIS TIME. BED IN LOWEST POSITION WITH CALL LIGHT IN REACH. WILL CONTINUE TO MONITOR AND REPORT TO ONCOMING RN.
[2023-02-07 07:45] VITALS: BP 152/102
[2023-02-07] MEDS ORDERED: CARV25 PO (15:25)
[2023-02-07] MEDS ORDERED: CEPH500 PO (15:26)
--- NOTE | 2023-02-07 15:55 | NUR ---
THE PATIENT WAS DISCHARGED HOME WITH HER FAMILY, AFTER DICHARGE INSTRUCTIONS WERE AND DISCUSSED WITH THE PATIENT AND HER FAMILY AND GIVEN TO THE PATIENT. THE PATIENT IS SCHEDULED FOR [facility]FUS[facility], STARTING TOMORROW. THE PATIENT WAS SENT HOME WITH HER IV INTACT AND IN PLACE. THE PATIENT WAS WHEELED OUT OF THE HOSPITAL VIA WHEELCHAIR.
== END 2023-02-07 15:42 | disposition home or self-care (01) | DRG 871 ==
LOC: ER 11:44 → PCU 20:35 → MEDS 02-05 11:40 → ENPENDDIS 02-07 13:56 → MEDS 02-07 15:42
PROVIDERS: Family Medicine; Internal Medicine; Nurse Practitioner Acute Care; Student in an Organized Health Care Education/Training Program; ADMIT Internal Medicine
DX: A41.59 Other Gram-negative sepsis (principal); G92.8 Other toxic encephalopathy; K83.09 Other cholangitis; E87.20 Acidosis, unspecified; I48.91 Unspecified atrial fibrillation; K21.9 Gastro-esophageal reflux disease without esophagitis; E83.42 Hypomagnesemia; R74.01 Elevation of levels of liver transaminase levels; E80.6 Other disorders of bilirubin metabolism; I10 Essential (primary) hypertension; E78.1 Pure hyperglyceridemia; M10.9 Gout, unspecified; M19.90 Unspecified osteoarthritis, unspecified site; D63.1 Anemia in chronic kidney disease; D69.6 Thrombocytopenia, unspecified; K64.9 Unspecified hemorrhoids; E89.0 Postprocedural hypothyroidism; K57.30 Diverticulosis of large intestine without perforation or abscess without bleeding; K44.9 Diaphragmatic hernia without obstruction or gangrene; K76.0 Fatty (change of) liver, not elsewhere classified; E87.6 Hypokalemia; Z79.890 Hormone replacement therapy; Z79.01 Long term (current) use of anticoagulants; Z79.899 Other long term (current) drug therapy; Z79.891 Long term (current) use of opiate analgesic; Z88.1 Allergy status to other antibiotic agents; Z88.8 Allergy status to other drugs, medicaments and biological substances; Z90.710 Acquired absence of both cervix and uterus; Z90.89 Acquired absence of other organs; Z98.890 Other specified postprocedural states; Z90.49 Acquired absence of other specified parts of digestive tract
CPT/HCPCS: 36415; 51701; 70450; 71046; 74177; 74181; 80053; 80074; 81001; 82140; 83605; 83690; 83735; 84145; 84443; 85025; 85027; 85610; 86015; 86160; 86225; 86235; 86381; 87040; 87077; 87186; 87507; 93005; 93010; 94760; 96361-59; 96365-59; 96366-59; 96368; 96375-59; 99285-25; A9270; C9113; J0690; J1885; J1940; J2405; J2543; J2765; J3010; J3475; J3480; J7030; J7050; J7120; Q9967

== ENCOUNTER 2023-02-08 01:11 | Day surgery (SDC) | payer MEDICARE ==
[~2023-02-08 01:11] MED LIST changes: +CARV25 PO
[2023-02-08 10:17] VITALS: BP 122/69
== END 2023-02-08 10:30 | disposition home or self-care (01) ==
LOC: ATC 01:11
DX: R78.81 Bacteremia (principal); I48.91 Unspecified atrial fibrillation; I10 Essential (primary) hypertension; E03.9 Hypothyroidism, unspecified; E78.1 Pure hyperglyceridemia; E89.0 Postprocedural hypothyroidism; E83.42 Hypomagnesemia; K21.9 Gastro-esophageal reflux disease without esophagitis; M10.9 Gout, unspecified; Z88.1 Allergy status to other antibiotic agents
CPT/HCPCS: 96365; J0696

== ENCOUNTER 2023-02-09 03:46 | Day surgery (SDC) | payer MEDICARE ==
[2023-02-09 09:59] VITALS: BP 139/84
== END 2023-02-09 10:14 | disposition home or self-care (01) ==
LOC: ATC 03:46
DX: R78.81 Bacteremia (principal)
CPT/HCPCS: 96365; J0696

== ENCOUNTER 2023-02-10 02:54 | Day surgery (SDC) | payer MEDICARE ==
[2023-02-10 10:19] VITALS: BP 125/68
== END 2023-02-10 10:30 | disposition home or self-care (01) ==
LOC: ATC 02:54
DX: R78.81 Bacteremia (principal); I48.91 Unspecified atrial fibrillation; I10 Essential (primary) hypertension; E03.9 Hypothyroidism, unspecified; K21.9 Gastro-esophageal reflux disease without esophagitis; M10.9 Gout, unspecified; Z88.1 Allergy status to other antibiotic agents; Z88.8 Allergy status to other drugs, medicaments and biological substances
CPT/HCPCS: 96365; J0696

== ENCOUNTER 2023-02-11 02:13 | Day surgery (SDC) | payer MEDICARE ==
[2023-02-11 10:11] VITALS: BP 119/76
== END 2023-02-11 10:23 | disposition home or self-care (01) ==
LOC: ATC 02:13
DX: R78.81 Bacteremia (principal); I48.91 Unspecified atrial fibrillation; I10 Essential (primary) hypertension; E03.9 Hypothyroidism, unspecified; K21.9 Gastro-esophageal reflux disease without esophagitis; Z88.8 Allergy status to other drugs, medicaments and biological substances; Z88.1 Allergy status to other antibiotic agents; Z79.890 Hormone replacement therapy; Z79.899 Other long term (current) drug therapy
CPT/HCPCS: J0696

== ENCOUNTER → 2024-06-11 | Outpatient (CLI) | payer MEDICARE ==
[2024-06-11 10:50] LABS: Source, Urine Clean Catch
[2024-06-11 13:14] LABS: Appearance, Urine Cloudy (Clear); Bilirubin, Urine Neg (Neg); Blood, Urine 3+ (Neg); Color, Urine Yellow (P-Yellow); Glucose Qualitative, Urine Neg (Neg); Ketones, Urine Neg (Neg); Leukocyte Esterase, Urine 3+ (Neg); Nitrite, Urine Neg (Neg); Protein, Urine 3+ (Neg); Urobilinogen, Urine NORM (Normal)
[2024-06-11 13:36] LABS: White Blood Cells, Urine TNTC /hpf (0-5)
[2024-06-11 13:40] LABS: Bacteria Many /hpf; Squamous Epithelial Cells Rare /hpf (Few)
== END | disposition home or self-care (01) ==
LOC: LAB SHORT 10:48 → LAB 10:48 → LAB FUT 06-11 09:55
PROVIDERS: Internal Medicine
DX: N39.0 Urinary tract infection, site not specified (principal)
CPT/HCPCS: 81001; 87086

== ENCOUNTER → 2024-07-04 | Outpatient (CLI) | payer MEDICARE ==
[2024-07-04 16:54] LABS: Source, Urine Clean Catch
[2024-07-04 18:43] LABS: Appearance, Urine Cloudy (Clear); Bilirubin, Urine Neg (Neg); Blood, Urine 4+ (Neg); Color, Urine Yellow (P-Yellow); Glucose Qualitative, Urine Neg (Neg); Ketones, Urine Neg (Neg); Leukocyte Esterase, Urine 3+ (Neg); Nitrite, Urine Neg (Neg); Protein, Urine 3+ (Neg); Urobilinogen, Urine NORM (Normal)
[2024-07-04 18:51] LABS: White Blood Cells, Urine TNTC /hpf (0-5)
[2024-07-04 18:52] LABS: Bacteria Mod /hpf; Squamous Epithelial Cells Few /hpf (Few)
== END ==
LOC: LAB SHORT 16:52 → LAB 16:52
PROVIDERS: Internal Medicine
DX: N39.0 Urinary tract infection, site not specified (principal)
CPT/HCPCS: 81001; 87077; 87086; 87186

== ENCOUNTER → 2024-07-18 | Outpatient (CLI) | payer MEDICARE ==
[2024-07-18 10:21] LABS: Source, Urine Clean Catch
[2024-07-18 13:30] LABS: Appearance, Urine Turbid (Clear); Bilirubin, Urine Neg (Neg); Blood, Urine 4+ (Neg); Glucose Qualitative, Urine Neg (Neg); Ketones, Urine Neg (Neg); Leukocyte Esterase, Urine 3+ (Neg); Nitrite, Urine Neg (Neg); Protein, Urine 3+ (Neg); Specific Gravity, Urine 1.015 (1.003-1.022); Urobilinogen, Urine NORM (Normal)
[2024-07-18 13:43] LABS: Color, Urine Pale Yellow (P-Yellow)
[2024-07-18 13:44] LABS: White Blood Cells, Urine TNTC /hpf (0-5)
[2024-07-18 13:45] LABS: Bacteria Many /hpf; Squamous Epithelial Cells Mod /hpf (Few)
== END ==
LOC: LAB SHORT 10:20 → LAB 10:20
PROVIDERS: Internal Medicine
DX: N39.0 Urinary tract infection, site not specified (principal)
CPT/HCPCS: 81001; 87077; 87086; 87186

== ENCOUNTER → 2024-08-05 | Outpatient (CLI) | payer MEDICARE ==
[2024-08-05 12:57] LABS: Source, Urine Clean Catch
[2024-08-05 15:37] LABS: Appearance, Urine Clear (Clear); Bilirubin, Urine Neg (Neg); Blood, Urine 1+ (Neg); Color, Urine Yellow (P-Yellow); Glucose Qualitative, Urine Neg (Neg); Ketones, Urine Neg (Neg); Leukocyte Esterase, Urine Neg (Neg); Nitrite, Urine Neg (Neg); Protein, Urine 1+ (Neg); Urobilinogen, Urine NORM (Normal)
[2024-08-05 15:54] LABS: Bacteria Few /hpf; Squamous Epithelial Cells Few /hpf (Few); White Blood Cells, Urine 0-2 /hpf (0-5)
== END ==
LOC: LAB 12:55 → LAB SHORT 12:55
PROVIDERS: Internal Medicine
DX: N39.0 Urinary tract infection, site not specified (principal)
CPT/HCPCS: 81001

== ENCOUNTER → 2024-11-29 | Outpatient (CLI) | payer MEDICARE ==
[2024-11-29 10:08] LABS: Source, Urine Clean Catch
[2024-11-29 13:40] LABS: Appearance, Urine Clear (Clear); Bilirubin, Urine Neg (Neg); Blood, Urine 1+ (Neg); Color, Urine Yellow (P-Yellow); Glucose Qualitative, Urine Neg (Neg); Ketones, Urine Neg (Neg); Leukocyte Esterase, Urine 2+ (Neg); Nitrite, Urine Neg (Neg); Protein, Urine 2+ (Neg); Specific Gravity, Urine 1.015 (1.003-1.022); Urobilinogen, Urine NORM (Normal)
[2024-11-29 13:43] LABS: Bacteria Many /hpf; Mucus Light (0-Heavy); Squamous Epithelial Cells Few /hpf (Few)
== END ==
LOC: LAB 10:05 → LAB SHORT 10:05
PROVIDERS: Internal Medicine
DX: N39.0 Urinary tract infection, site not specified (principal)
CPT/HCPCS: 81001; 87086

== ENCOUNTER → 2025-01-31 | Outpatient (CLI) | payer MEDICARE ==
[2025-01-31 13:10] LABS: Source, Urine Clean Catch
[2025-01-31 15:41] LABS: Bilirubin, Urine Neg (Neg); Color, Urine Yellow (P-Yellow); Glucose Qualitative, Urine Neg (Neg); Ketones, Urine Neg (Neg); Leukocyte Esterase, Urine 3+ (Neg); Protein, Urine 3+ (Neg); Specific Gravity, Urine 1.015 (1.003-1.022); Urobilinogen, Urine NORM (Normal)
[2025-01-31 16:35] LABS: White Blood Cells, Urine TNTC /hpf (0-5)
[2025-01-31 16:36] LABS: Red Blood Cells, Urine TNTC /hpf (0-2)
== END | disposition home or self-care (01) ==
LOC: LAB 13:08 → LAB SHORT 13:08 → LAB FUT 01-31 09:55
PROVIDERS: Internal Medicine
DX: N39.0 Urinary tract infection, site not specified (principal)
CPT/HCPCS: 81001; 87086

== ENCOUNTER → 2025-03-13 | Outpatient (CLI) | payer MEDICARE | END | disposition home or self-care (01) | LOC: LAB 13:47 → LAB SHORT 13:47 | DX: N39.0 Urinary tract infection, site not specified (principal) | CPT/HCPCS: 87086 ==